=== PATIENT | male | born 1935 | race Caucasian/White ===

== ENCOUNTER → 2017-11-09 | Outpatient (CLI) | payer OTHER, MEDICARE ==
[~2017-11-09] MED LIST: ADULT LOW DOSE81 MG PO; ATROVENT15 ML NS; CALCIUM OR; MAG OR; MULTIVITAMINS; NEXIUM40 MG PO; POTASSIU OR; PRAVASTATIN SOD20 MG PO; TRIAMTERENE-HC1 EAC1 PO; VICODIN; VITAMIN E400 UNIT PO
== END ==
LOC: RAD 11:07
DX: M47.896 Other spondylosis, lumbar region (principal); G95.89 Other specified diseases of spinal cord; I70.0 Atherosclerosis of aorta; M25.552 Pain in left hip; M25.551 Pain in right hip